=== PATIENT | male | born 1995 | race Caucasian/White ===

== ENCOUNTER 2017-05-09 08:35 | Day surgery (SDC) | payer OTHER ==
[~2017-05-09] VITALS: Ht 175.3 cm; Wt 104.7 kg
[~2017-05-09 08:35] MED LIST: MIDAZOLAM INJ 2 MG/2 ML VIAL (J2250) As Ordered ONE; NO MEDICATIONS; fentaNYL 100 MCG/2 ML INJECTION (J3010) As Ordered ONE
[2017-05-09] MEDS ORDERED: BUPIVACAINE HCL 0.5% 10 ML VIAL As Ordered ONE (11:30)
[2017-05-09] MEDS ORDERED: dexameTHASONE 4 MG/ML 1ML VIAL (J1100) As Ordered ONE (11:53)
[2017-05-09] MEDS ORDERED: LIDOCAINE 2% INJ 100 MG/5 ML SDV (FOR ANES.) As Ordered ONE (11:59)
[2017-05-09] MEDS ORDERED: PROPOFOL 200 MG/20 ML VIAL As Ordered ONE (11:59)
[2017-05-09] MEDS ORDERED: ONDANSETRON 4MG/2ML VIAL (J2405) As Ordered ONE (12:08)
[2017-05-09] MEDS ORDERED: ceFAZolin 2 GM/D5W 50 ML IV BAG (J0690) As Ordered ONE (12:11)
--- NOTE | 2017-05-09 13:23 | REP ---
Right elbow intraoperative fluoroscopic views: Three intraoperative fluoroscopic views of the right elbow are performed. There is internal fixation. The visualized skeletal structures and hardware appear to be in satisfactory position alignment on the views presented. Fluoroscopic exposure time is 8 seconds. Fluoroscopic images are performed last image hold technology. These images require no additional radiation. Signed by Hector Holloway MD 05/09/2017 01:14 P
[2017-05-09] MEDS ORDERED: HYDROmorphone HCL 1 MG/ML SYRINGE (J1170) IV PRN (13:30)
[2017-05-09] MEDS ORDERED: PERCOCET 5MG/325MG TAB PO PRN (13:30)
[2017-05-09] MEDS ORDERED: ONDANSETRON 4MG/2ML VIAL (J2405) IV PRN (13:30)
[2017-05-09] MEDS ORDERED: LR 1,000 ML IV SCH ×2 (13:30)
[2017-05-09] MEDS ORDERED: fentaNYL 100 MCG/2 ML INJECTION (J3010) IV PRN (13:30)
[2017-05-09 14:15] VITALS: BP 156/90
--- NOTE | 2017-05-12 07:57 | RO ---
DATE OF PROCEDURE: 05/09/2017 PREOPERATIVE DIAGNOSIS: Right elbow superficial wound infection. POSTOPERATIVE DIAGNOSIS: Right elbow wound dehiscence. PROCEDURE: Right elbow irrigation and debridement of skin and subcutaneous fascia. SURGEON: Roe Reddy MD TEXTURING MACHINE FIXER: None. ANESTHESIA: General. IV FLUIDS: Lactated Ringer's. ESTIMATED BLOOD LOSS: Less than 50 mL. SPECIMENS: Wound swab times two. CLOSURE: Nylon. INDICATIONS: Allan is a 21-year-old male status post open reduction internal fixation (ORIF) of a displaced right olecranon fracture on 03/19/2017. His first month postoperatively was routine. About one month out from surgery, he developed a suture abscess where the Vicryl sutures had started to protrude through the skin. That was debrided in the office and he was given a prescription for antibiotics and that cleared up. Once antibiotics were finished, the skin became more macerated with some very faint drainage, but no purulence. Given the presence of hardware in the area, I was concerned for this turning into a deep infection and after discussing further, oral antibiotics versus formal irrigation and debridement in the OR, I did recommend formal debridement and the patient agreed. We discussed the risks and benefits of irrigation and debridement, and written informed consent was obtained. PROCEDURE: The patient was identified in the preoperative holding area and the right arm was signed by myself. He was brought to the operating room and placed supine on a well padded OR table. Venodyne boots bilateral lower extremities. General anesthesia induced without complication. Preoperative antibiotics were held. The right arm was prepped and draped in the normal sterile fashion with Betadine. Prior to incision, a time out was performed in which myself and all OR staff confirmed the patient's name, medical record number, date of and the correct, side, site and procedure. There was a 1.5 cm area of superficial wound dehiscence. I was unable to express any purulent fluid. I used a 15 blade to sharply excise the macerated tissue, which was basically near the tip of the olecranon. After ellipsing out that portion of the incision, I carried the incision distally about 2 cm to a second area where it appeared another Vicryl suture wanted to spit. I then used a curette to debride the subcutaneous fascia. I did not visualize any Vicryl sutures. I did not encounter any purulent fluid during the procedure. There was one deeper area of some macerated tissue that I removed with a rongeur. I then irrigated the incision with 3 liters of normal saline using cystoscopy tubing. We then put down a new sterile towel and used fresh instruments. The curette was again used to debride any macerated unhealthy appearing tissue right at that incision. First curette was then used to probe the punctate area of maceration, which was deeper, and it was found to go down to the plate. I used a clean curette to debride the undersurface of that skin flap to remove any loose tissue in that area. A sample of that tissue was also put in the culture tube. None of the tissue appeared infected. There was no purulence. There was healthy bleeding tissue everywhere. I then used an additional 3 liters for a total of 6 liters of normal saline using cystoscopy tubing to irrigate that deeper pocket that had been created. I should mention that no hardware was visible. After successful irrigation and debridement, I loosely closed the incision with simple interrupted #3-0 nylon sutures which were monofilament. I injected 7 mL of 0.5% Marcaine without epinephrine for a local anesthetic. A bulky sterile bandage was applied and then an Joseph bandage. Prior to placing the bandage, I did use the miniature C-arm to obtain multiple x-rays of the elbow which showed unchanged alignment with appropriate positioned hardware. All counts were correct times two. COMPLICATIONS: None. DISPOSITION: The patient was extubated and transferred to the postanesthesia care unit (PACU) in stable condition. Will followup on his OR cultures. I should have mentioned that as soon as the cultures were obtained, then 2 grams of IV cefazolin intraoperatively. He is going to be on a 10 day course of oral Bactrim and will just work on gentle range of motion. No formal therapy. No strengthening. He will followup on May 20, 2017 for suture removal.
== END 2017-05-09 14:18 | disposition home or self-care (01) ==
LOC: M SDC 08:35
PROVIDERS: ATTEND Orthopaedic Surgery
DX: T81.31XA Disruption of external operation (surgical) wound, not elsewhere classified, initial encounter (principal); Y82.9 Unspecified medical devices associated with adverse incidents
CPT/HCPCS: 11043; 73070; 87070; 87075; 87077; 87186; 87205; J0690; J1100; J2250; J2405; J3010

== ENCOUNTER → 2017-05-20 | Outpatient (CLI) | payer OTHER ==
[~2017-05-20] MED LIST changes: -MIDAZOLAM INJ 2 MG/2 ML VIAL (J2250) As Ordered ONE; -fentaNYL 100 MCG/2 ML INJECTION (J3010) As Ordered ONE
== END ==
LOC: M LABDRAW1 09:44
PROVIDERS: ATTEND Orthopaedic Surgery
DX: T81.30XA Disruption of wound, unspecified, initial encounter (principal); Y92.89 Other specified places as the place of occurrence of the external cause; Y93.89 Activity, other specified

== ENCOUNTER → 2017-06-17 | Outpatient (REF) | payer OTHER | LOC: M LABDRAW1 14:00 | PROVIDERS: ATTEND Orthopaedic Surgery | DX: S52.031D Displaced fracture of olecranon process with intraarticular extension of right ulna, subsequent encounter for closed fracture with routine healing (principal); W18.30XD Fall on same level, unspecified, subsequent encounter; Y92.009 Unspecified place in unspecified non-institutional (private) residence as the place of occurrence of the external cause ==

== ENCOUNTER → 2017-10-31 | Outpatient (REF) | payer OTHER ==
[2017-10-31 12:46] LABS: BASO % 0.4 % (0.0-1.0); EOS # 0.2 10^3/uL (0.0-0.50); EOS % 2.3 % (0.0-3.0); HEMOGLOBIN 16.3 g/dl (13.5-17.5); IMMATURE GRANULOCYTE % 0.1 % (0-3.0); LYMPH # 1.5 10^3/uL (1.5-6.5); LYMPH % 22.6 % (24.0-44.0); MEAN CORPUSCULAR HEMOGLOBIN 29.5 pg (27.0-33.0); MEAN CORPUSCULAR HGB CONC 35.4 g/dl (32.0-36.5); MEAN CORPUSCULAR VOLUME 83.3 fl (80.0-96.0); MONO # 0.6 10^3/uL (0.0-0.8); MONO % 8.2 % (0.0-5.0); NEUTROPHILS # 4.5 10^3/uL (1.8-7.7); NEUTROPHILS % 66.4 % (36.0-66.0); PLATELET COUNT, AUTOMATED 270 10^3/uL (150-450); RED BLOOD COUNT 5.52 10^6/uL (4.30-6.10); RED CELL DISTRIBUTION WIDTH 12.3 % (11.5-14.5); WHITE BLOOD COUNT 6.8 10^3/uL (4.0-10.0)
[2017-10-31 13:11] LABS: ERYTHROCYTE SEDIMENTATION RATE 3 mm/hr (0-15)
[2017-10-31 13:13] LABS: C REACTIVE PROTEIN QUANTITATIV 0.52 MG/DL (0.00-0.30)
== END ==
LOC: M LAB REF 12:19
DX: S62.212D Bennett's fracture, left hand, subsequent encounter for fracture with routine healing (principal); X58.XXXD Exposure to other specified factors, subsequent encounter; Y92.89 Other specified places as the place of occurrence of the external cause
CPT/HCPCS: 86140

== ENCOUNTER → 2018-02-11 | Outpatient (REF) | payer OTHER | LOC: M LAB REF 13:29 | DX: R22.31 Localized swelling, mass and lump, right upper limb (principal) ==

== ENCOUNTER → 2018-02-13 | Outpatient (REF) | payer OTHER | LOC: M LAB REF 13:19 | DX: L92.9 Granulomatous disorder of the skin and subcutaneous tissue, unspecified (principal) | CPT/HCPCS: 88305 ==

== ENCOUNTER 2022-02-19 19:14 | Inpatient (IN) | payer OTHER ==
[~2022-02-19] VITALS: Ht 172.7 cm; Wt 95.5 kg
[2022-02-19 20:19] LABS: HEMATOCRIT 41.9 % (42.0-52.0); HEMOGLOBIN 14.7 g/dl (13.5-17.5); MEAN CORPUSCULAR HEMOGLOBIN 29.5 pg (27.0-33.0); MEAN CORPUSCULAR HGB CONC 35.1 g/dl (32.0-36.5); MEAN CORPUSCULAR VOLUME 84.1 fl (80.0-96.0); PLATELET COUNT, AUTOMATED 307 10^3/uL (150-450); RED BLOOD COUNT 4.98 10^6/uL (4.30-6.10); WHITE BLOOD COUNT 11.5 10^3/uL (4.0-10.0)
[2022-02-19 20:52] LABS: RSV AMPLIFICATION NEGATIVE (NEGATIVE)
[2022-02-19 21:08] LABS: ACETAMINOPHEN LEVEL 2.2 UG/ML (10.0-30.0); ALT/SGPT 26 U/L (12-78); AMPHETAMINES LEVEL URINE NEGATIVE (NEGATIVE); BARBITURATES URINE NEGATIVE (NEGATIVE); BENZODIAZEPINES URINE NEGATIVE (NEGATIVE); BILIRUBIN,DIRECT < 0.1 MG/DL (0.0-0.2); BILIRUBIN,TOTAL 0.4 MG/DL (0.2-1.0); BLOOD UREA NITROGEN 16 MG/DL (7-18); CALCIUM LEVEL 9.8 MG/DL (8.5-10.1); CANNABINOIDS URINE POSITIVE (NEGATIVE); CARBON DIOXIDE LEVEL 27 MEQ/L (21-32); CHLORIDE LEVEL 106 MEQ/L (98-107); COCAINE METABOLITE URINE NEGATIVE (NEGATIVE); ETHYL ALCOHOL (ETHANOL) < 0.003 % (0.000-0.010); GLOMERULAR FILTRATION RATE > 60.0 (>60); GLUCOSE, FASTING 93 MG/DL (70-100); METHADONE URINE NEGATIVE (NEGATIVE); OPIATES URINE NEGATIVE (NEGATIVE); PHENCYCLIDINE URINE NEGATIVE (NEGATIVE); POTASSIUM SERUM 4.1 MEQ/L (3.5-5.1); SALICYLATE LEVEL < 1.7 MG/DL (5.0-30.0); SODIUM LEVEL 138 MEQ/L (136-145); TOTAL PROTEIN 7.5 GM/DL (6.4-8.2)
[2022-02-20] MEDS ORDERED: HOME MED LIST COMPLETE! XX SCH (01:00)
[2022-02-22 10:58] LABS: RSV AMPLIFICATION NEGATIVE (NEGATIVE)
[2022-02-22] MEDS ORDERED: diphenhydrAMINE 25MG CAP PO PRN (12:20)
[2022-02-22] MEDS ORDERED: MOM 30ML SUSPENSION UDC PO PRN (12:20)
[2022-02-22] MEDS ORDERED: IBUPROFEN 400MG TAB PO PRN (12:20)
[2022-02-22] MEDS ORDERED: MAALOX 30 ML SUSP *UDC PO PRN (12:20)
[2022-02-22 15:41] VITALS: BP 142/76
[2022-02-22] MEDS: NICOTINE 21MG/24HR 1 EA TRANSDERMAL TD SCH (16:00)
[2022-02-22] MEDS: SERTRALINE HCL 50 MG TAB PO SCH (16:01)
[2022-02-23 06:22] VITALS: BP 143/93
[2022-02-23] MEDS: NICOTINE 21MG/24HR 1 EA TRANSDERMAL TD SCH (08:15)
[2022-02-23] MEDS: SERTRALINE HCL 50 MG TAB PO SCH (08:15)
[2022-02-23 19:12] VITALS: BP 158/90
[2022-02-24 06:52] VITALS: BP 137/89
[2022-02-24] MEDS: SERTRALINE HCL 50 MG TAB PO SCH (08:25)
[2022-02-24] MEDS: NICOTINE 21MG/24HR 1 EA TRANSDERMAL TD SCH (08:25)
[2022-02-24] MEDS: traZODone 50 MG TAB PO PRN (20:16)
[2022-02-25 06:24] VITALS: BP 135/81
[2022-02-25] MEDS: SERTRALINE HCL 50 MG TAB PO SCH (08:09)
[2022-02-25] MEDS: NICOTINE 21MG/24HR 1 EA TRANSDERMAL TD SCH (08:10)
[2022-02-25 19:55] VITALS: BP 138/71
[2022-02-25] MEDS: traZODone 50 MG TAB PO PRN (20:03)
[2022-02-26 06:25] VITALS: BP 149/90
[2022-02-26] MEDS: NICOTINE 21MG/24HR 1 EA TRANSDERMAL TD SCH (08:07)
[2022-02-26] MEDS: SERTRALINE HCL 50 MG TAB PO SCH (08:08)
[2022-02-26] MEDS ORDERED: NICO21PAT TD (09:05)
[2022-02-26] MEDS ORDERED: SERT50TA29 PO (09:05)
[2022-02-26] MEDS ORDERED: TRAZ-252 PO (09:05)
== END 2022-02-26 13:00 | disposition home or self-care (01) | DRG 885 ==
LOC: M ED 19:14 → M ED INP 02-22 12:17 → M PSY 02-22 13:44
PROVIDERS: ADMIT Student in an Organized Health Care Education/Training Program; ATTEND Student in an Organized Health Care Education/Training Program
DX: F32.1 Major depressive disorder, single episode, moderate (principal); R45.851 Suicidal ideations; F12.90 Cannabis use, unspecified, uncomplicated; F41.9 Anxiety disorder, unspecified; D72.829 Elevated white blood cell count, unspecified